=== PATIENT | male | born 1950 ===

== ENCOUNTER → 2016-11-19 | Day surgery (SDC) | payer OTHER, MEDICARE ==
[~2016-11-19] VITALS: Ht 170.2 cm; Wt 77.1 kg
[~2016-11-19] MED LIST: FINASTERIDE5 M1 PO; LISINOPRIL10 M1 PO; MYRBETRIQ25 M1 PO; TAMSULOSIN HCL0.4 M1 PO
--- NOTE | 2016-11-19 19:35 | Operative Report ---
Operative/Inv Procedure Report Surgery Date: 11/19/16 Name of Procedure: LASER TURP Pre-Operative Diagnosis: BPH Post-Operative Diagnosis: SAME Estimated Blood Loss: less than 50ml Surgeon/[employer] Licensee: MAURIZIO HAIRSTON MD Anesthesia: laryngeal mask airway Drains: 20 FR. [place] TIP MINER Specimens: PROSTATE CHIP Complications: NONE Operative/Procedure Note Note: The patient was taken to the operating room and placed on the OR table in supine position. Timeout was performed, with the patient awake, in order to confirm the patient's correct identity, procedure, laterality, antibiotics, and other pertinent layla-operative information. After adequate anesthesia and antibiotics , the indwelling miner was removed. The patient was then draped and prepped in the usual surgical fashion. He was positioned comfortably and securely in Yellow-Fin stirrups. A lubricated 22 [place] cystoscope sheath with 30 angle lens was inserted under direct visualization. On entering the prostatic urethra, the prostate gland was noted to have significantly obstructing bilateral prostate lobes, and a large middle lobe. The veru-montanum was noted to be normal. Upon entering the bladder, through a narrowed bladder neck, the bladder was noted to be trabeculated with multiple cellules. There was no evidence of bladder tumor, nor stones. Both ureteral orifices were noted to be in their orthotopic position with clear reflux bilaterally. The bladder was drained, via the cystoscope, and the cystoscope was removed. A 26 [place] laser resectoscope sheath was then inserted into the penis, with a 30 angle lens, under direct visualization. The diode laser was then extended through the scope, and under direct direct visualization the middle lobe was wedged out avoiding the ureters bilaterally. This middle lobe chip was then extracted and sent to pathology. The laser resectoscope was then reinserted into the penis. Maintaining the cystoscope at the level of the veru-montanum, the diode laser fiber was then inserted through the scope and visualized directly in front of the laser resectoscope sheath, in proper orientation. Photo-vaporization of the left lobe was performed in order to open a wide prostatic urethral channel on the left side. The resection proceeded from the 2 -6 o'clock position, obliterating the glandular tissue, but not reaching or penetrating the capsule. Laser TURP was performed in a sweeping manner in order to get good vaporization of the prostate lobe, and good hemostasis. The resection of the left apical lobe was haulted at the level of the vera montanum, so as to preserve the external sphincter. Once the left lobe was resected in a satisfactory manner, the right lobe of the prostate was then photo vaporized in the same manner from the 10:00 to the 6 o'clock position. Once again the resection of the right lobe was haulted at the level of the veru-montanum. Once hemostasis and an open channel was confirmed, the resectoscope was then reinserted into the bladder. The bladder was again thoroughly and systematically surveyed in order to confirm; no evidence of injury to the bladder or orifices. The bladder was copiously irrigated in order to us to ensure no foreign body was in the bladder. The bladder was left full and the resectoscope was then removed under direct visualization again confirming good hemostasis. The patient was noted to have mild spontaneous drainage upon removal of the resectoscope. All sponge, needle, and instrument count were correct at the end of the case. A 20 [place] Miner catheter was then inserted and drained clear fluid prior to inflating the 10 mL balloon. The Miner catheter was attached to a drainage bag. The patient tolerated the procedure well and was taken to the recovery room in satisfactory condition, with Rx for antibiotics, and pain-meds. Findings: LARGE MIDDLE LOBE-WEDGED OUT WITH LASER Discharge Disposition: PACU CC: MAURIZIO HAIRSTON MD
== END ==
LOC: STS 01:48
DX: N40.1 Benign prostatic hyperplasia with lower urinary tract symptoms (principal); N32.89 Other specified disorders of bladder; R35.0 Frequency of micturition; R39.198 Other difficulties with micturition; I10 Essential (primary) hypertension; I45.4 Nonspecific intraventricular block; Z87.891 Personal history of nicotine dependence
CPT/HCPCS: 88305; J2250